=== PATIENT | male | born 1960 | race Caucasian/White ===

== ENCOUNTER → 2020-08-30 | Day surgery (SDC) | payer BC ==
[~2020-08-30] MED LIST: ASPIRIN E.C. 8181 MG PO; BALANCE B-1001 TA1 PO; BENICAR HCT 251 TAB PO; BRILINTA90 MG PO; CALCIUM-MAGNES1 EAC1 PO; COREG 25MG25 MG/TAB PO; LIPITOR 80MG80 MG PO; MAG-OX 400400 MG/TAB PO; MULTIVITAMIN PO; NATURAL E400 IU PO; NATURAL POTASS595 MG PO; NORVASC 10MG10 MG PO; OMEGA-31 SGL PO; VITAMIN C500 MG PO; ZYLOPRIM 300MG300 MG PO
== END ==
LOC: COL.CAR 07:00
DX: R94.39 Abnormal result of other cardiovascular function study (principal); Z53.8 Procedure and treatment not carried out for other reasons

== ENCOUNTER 2020-10-04 10:12 | Day surgery (SDC) | payer BC ==
[~2020-10-04] VITALS: Ht 177.8 cm; Wt 121.4 kg
[2020-10-04] VITALS (244 sets, daily range): BP systolic 127–163; BP diastolic 65–88; PULSE 43–58; TEMP 98–98.3; O2SAT 86–100
[2020-10-04 11:17] LABS: HEMATOCRIT 44.2 % (42.0-52.0); HEMOGLOBIN 15.3 g/dl (13.5-18.0); MEAN CELL VOLUME 92 fl (80.0-100.0); MEAN CORPUSCULAR HEMOGLOBIN 32 pg (27.0-31.0); MEAN CORPUSCULAR HGB CONC 35 g/dl (33.0-37.0); MEAN PLATELET VOLUME 9.4 fl (7.4-10.4); PLATELET COUNT 192 K/mm3 (130-400); RED BLOOD COUNT 4.82 M/mm3 (4.20-5.60); REDCELL DISTRIBUTION WIDTH-CV 13.4 % (11.5-14.5)
[2020-10-04 11:27] LABS: PROTHROMBIN TIME 11.6 SECONDS (9.7-12.8)
[2020-10-04 11:30] LABS: PARTIAL THROMBOPLASTIN TIME 31.3 SECONDS (26.0-37.0)
[2020-10-04 11:37] LABS: CALCIUM 9.6 mg/dL (8.4-10.2); CREATININE, serum 0.81 (0.66-1.25); POTASSIUM 4.2 mmol/L (3.4-5.0)
[2020-10-04] MEDS ORDERED: BENICAR HCT 251 TAB PO (12:03)
[2020-10-04] MEDS ORDERED: COREG 25MG25 MG/TAB PO (12:05)
[2020-10-04] MEDS ORDERED: ZYLOPRIM 300MG300 MG PO (12:07)
[2020-10-04] MEDS ORDERED: NORVASC 10MG10 MG PO (12:07)
[2020-10-04] MEDS ORDERED: ASPIRIN E.C. 8181 MG PO (12:08)
[2020-10-04] MEDS ORDERED: OMEGA-31 SGL PO (12:09)
[2020-10-04] MEDS ORDERED: MAG-OX 400400 MG/TAB PO (12:09)
[2020-10-04] MEDS ORDERED: CALCIUM-MAGNES1 EAC1 PO (12:10)
[2020-10-04] MEDS ORDERED: BALANCE B-1001 TA1 PO (12:11)
[2020-10-04] MEDS ORDERED: MULTIVITAMIN PO (12:11)
[2020-10-04] MEDS ORDERED: NATURAL E400 IU PO (12:12)
[2020-10-04] MEDS ORDERED: VITAMIN C500 MG PO (12:13)
[2020-10-04] MEDS ORDERED: NATURAL POTASS595 MG PO (12:13)
--- NOTE | 2020-10-04 14:04 | NUR ---
RECEIVED REPORT FROM SIMBA CULVER IN [employer]. AWAITING ARRIVAL OF PT TO ICU 8.
--- NOTE | 2020-10-04 14:20 | NUR ---
PT ARRIVES TO ICU 8 VIA BED PLACED ON BEDSIDE CONTINUOUS MONITOR. CALL LIGHT AND URINAL WITHIN REACH. VSS. PER REPORT, 13ML IN TR BAND ON RT RADIAL. SITE C/D/I.
--- NOTE | 2020-10-04 18:15 | NUR ---
TR BAND AT 7ML LEFT. NOTED BLEEDING. 3ML REPLACED TO MAKE A TOTAL OF 10ML BACK IN BAND. PT AWARE OF NEEDIGN TO KEEP BAND ON LONGER. GOOD CAP REFILL NOTED TO ALL FINGERS TO RT HAND AND GOOD COLORING.
--- NOTE | 2020-10-04 21:00 | NUR ---
Assessment complete and charted. TR band bleeding with release of air for previous shift. Able to remove 3 mls of air at this time without bleeding. Patient educated on reporting bleeding to staff. Will release air as able. CMS intact at this time. Denies pain. Denies needs. Call light in reach.
--- NOTE | 2020-10-04 22:04 | NUR ---
2 mls of air removed from TR band at this time
[2020-10-05] VITALS (247 sets, daily range): BP systolic 126–137; BP diastolic 60–82; PULSE 46–49; TEMP 97.9–98; O2SAT 80–100
--- NOTE | 2020-10-05 01:05 | NUR ---
Tr band removed at this time. Patient had no signs of active bleeding. Educated to report bleeding/oozing
--- NOTE | 2020-10-05 02:30 | NUR ---
Right radial site CDI. Denies needs. Call light in reach.
--- NOTE | 2020-10-05 04:15 | NUR ---
Right radial site CDI. Denies needs. call light in reach.
--- NOTE | 2020-10-05 06:21 | NUR ---
Patient had uneventful night. Bradycardia at times. Lowest rate observed was 35 non sustained. Resting in bed this AM. Denies needs. Call light in reach.
--- NOTE | 2020-10-05 07:06 | NUR ---
Report given to SIMBA Rodriguez
[2020-10-05 08:12] LABS: BASO % 0.5 % (0.0-2.0); EOS # 0.1 (0.0-0.7); EOS % 2.3 % (0-4.0); GRAN # 4.7 (1.4-6.5); GRAN % 77.1 % (42.2-75.2); HEMATOCRIT 42.3 % (42.0-52.0); HEMOGLOBIN 14.7 g/dl (13.5-18.0); LYMPH # 0.7 (1.2-3.4); LYMPH % 11.2 % (20.0-51.0); MEAN CELL VOLUME 91 fl (80.0-100.0); MEAN CORPUSCULAR HEMOGLOBIN 32 pg (27.0-31.0); MEAN CORPUSCULAR HGB CONC 35 g/dl (33.0-37.0); MEAN PLATELET VOLUME 9.4 fl (7.4-10.4); MONO # 0.5 (0.1-0.6); MONO % 8.7 % (1.7-9.3); PLATELET COUNT 191 K/mm3 (130-400); RED BLOOD COUNT 4.66 M/mm3 (4.20-5.60); REDCELL DISTRIBUTION WIDTH-CV 13.3 % (11.5-14.5)
[2020-10-05 08:21] LABS: CALCIUM 9.3 mg/dL (8.4-10.2); CREATININE, serum 0.73 (0.66-1.25)
[2020-10-05] MEDS ORDERED: LIPITOR 80MG80 MG PO (13:08)
[2020-10-05] MEDS ORDERED: BRILINTA90 MG PO (13:08)
== END 2020-10-05 14:00 | disposition home or self-care (01) ==
LOC: COL.CAR 10:12 → ICU 14:27 → COL.CAR 10-05 14:00
PROVIDERS: Internal Medicine Cardiovascular Disease
DX: I25.110 Atherosclerotic heart disease of native coronary artery with unstable angina pectoris (principal); R94.39 Abnormal result of other cardiovascular function study; E66.9 Obesity, unspecified; I10 Essential (primary) hypertension; M10.9 Gout, unspecified; R73.03 Prediabetes; E78.00 Pure hypercholesterolemia, unspecified; E27.8 Other specified disorders of adrenal gland; E83.52 Hypercalcemia; Z79.82 Long term (current) use of aspirin; Z79.899 Other long term (current) drug therapy; Z20.822 Contact with and (suspected) exposure to COVID-19; Z82.49 Family history of ischemic heart disease and other diseases of the circulatory system
CPT/HCPCS: OP; C1725; C1769; C1874; C1887; C9600; C9601; J0583; J1644; J2250; J3010; Q9967

== ENCOUNTER 2020-11-29 17:09 | Outpatient (RCR) | payer BC | END 2020-11-29 17:21 | disposition home or self-care (01) | LOC: COL.CR 17:09 | DX: Z48.812 Encounter for surgical aftercare following surgery on the circulatory system (principal); Z95.5 Presence of coronary angioplasty implant and graft ==

== ENCOUNTER 2021-04-30 07:31 | Day surgery (SDC) | payer BC ==
[~2021-04-30] VITALS: Ht 177.8 cm; Wt 108.7 kg
[2021-04-30 07:51] VITALS: BP 129/67; PULSE 47; TEMP 97.5
[2021-04-30] MEDS ORDERED: LIPITOR 80MG80 MG PO (07:55)
[2021-04-30] MEDS ORDERED: COREG 3.123.125 MG/T PO (07:57)
[2021-04-30] MEDS ORDERED: BRILINTA90 MG PO (08:02)
[2021-04-30] MEDS ORDERED: HAWTHORN PO (08:03)
[2021-04-30] MEDS ORDERED: ULTRAM 50MG TAB50 MG PO (10:38)
[2021-04-30 11:10] VITALS: BP 124/67; PULSE 45; TEMP 97.8
--- NOTE | 2021-04-30 11:10 | NUR ---
The patient arrived back to [facility] from the recovery room at this time. The patient appears alert and oriented and denies any pain or nausea at this time. Post operative vital signs were started at this time. The patient has some water and appears to be tolerating it well. The patient has three bandaids to his abdomen that appear clean, dry and intact. The patient's was brought back to be at his bedside. The patient denies wanting anything further to eat or drink. Call light is within reach. Will continue to monitor the patient.
[2021-04-30 11:25] VITALS: BP 112/52; PULSE 40
--- NOTE | 2021-04-30 11:25 | NUR ---
The patient appears to be tolerating the water well. The patient was given some applesauce to try at this time. The patient's post operative vital signs appear stable. The patient was weaned to room air at this time. Call light is within reach. Will continue to monitor the patient.
[2021-04-30 11:40] VITALS: BP 120/60; PULSE 40
--- NOTE | 2021-04-30 11:40 | NUR ---
The patient has finished his applesauce and appeared to tolerate it well. The patient denies wanting anything further to eat or drink at this time. The patient denies needing to void at this time.
--- NOTE | 2021-04-30 11:55 | NUR ---
The patient ambulated to the bathroom with the stand by assistance of one nurse and appeared to tolerate the activity well. The patient reported that he voided without difficulty and voices a desire to be discharged home. The nurse instructed the patient to get dressed and notify the staff when he is ready to review his discharge instructions.
[2021-04-30 11:58] VITALS: BP 118/67; PULSE 47
--- NOTE | 2021-04-30 12:15 | NUR ---
The patient was escorted out via wheelchair to a private vehicle by SIMBA Chaparro. The patient's belongings and discharge paperwork were sent with him. The patient's is present to drive him home.
== END 2021-04-30 12:15 | disposition home or self-care (01) ==
LOC: SDCO 07:31
DX: K40.90 Unilateral inguinal hernia, without obstruction or gangrene, not specified as recurrent (principal); I10 Essential (primary) hypertension; M10.9 Gout, unspecified; Z79.899 Other long term (current) drug therapy
CPT/HCPCS: C1781; J0330; J0690; J1100; J1885; J2250; J2405; J2704; J3010; J7120

== ENCOUNTER 2021-08-15 14:31 | Outpatient (RCR) | payer SELFPAY ==
[~2021-08-15 14:31] MED LIST changes: +COREG 3.123.125 MG/T PO; +HAWTHORN PO; +ULTRAM 50MG TAB50 MG PO
== END 2021-08-28 ==
LOC: COL.CR
DX: Z29.8 Encounter for other specified prophylactic measures (principal)

== ENCOUNTER 2021-10-17 14:50 | Outpatient (RCR) | payer SELFPAY | END 2021-10-28 | LOC: COL.CR | DX: Z29.8 Encounter for other specified prophylactic measures (principal) ==

== ENCOUNTER 2021-11-21 14:55 | Outpatient (RCR) | payer SELFPAY | END 2021-11-27 | LOC: COL.CR | DX: Z29.8 Encounter for other specified prophylactic measures (principal) ==

== ENCOUNTER 2021-12-12 16:40 | Outpatient (RCR) | payer SELFPAY | END 2021-12-28 | LOC: COL.CR | DX: Z29.8 Encounter for other specified prophylactic measures (principal) ==